=== PATIENT | female | born 1950 | race Caucasian/White ===

== ENCOUNTER 2025-05-15 13:23 | Emergency (ER) | payer MEDICARE, OTHER ==
[2025-05-15] MEDS ORDERED: Bacitracin 1 PK ONE (13:41)
== END 2025-05-15 14:29 | disposition home or self-care (01) ==
LOC: NAV ERS 13:23
DX: S01.01XA Laceration without foreign body of scalp, initial encounter (principal); S01.81XA Laceration without foreign body of other part of head, initial encounter; S80.02XA Contusion of left knee, initial encounter; S60.512A Abrasion of left hand, initial encounter; E11.9 Type 2 diabetes mellitus without complications; E78.00 Pure hypercholesterolemia, unspecified; Z23 Encounter for immunization; Z79.4 Long term (current) use of insulin; Z79.85 Long-term (current) use of injectable non-insulin antidiabetic drugs; Z79.899 Other long term (current) drug therapy; W18.30XA Fall on same level, unspecified, initial encounter
CPT/HCPCS: 12013; 70450; 90471; 90715